=== PATIENT | female | born 1970 | race Caucasian/White ===

== ENCOUNTER 2018-04-06 08:57 | Day surgery (SDC) | payer OTHER ==
[~2018-04-06] VITALS: Ht 167.6 cm; Wt 82.5 kg
[~2018-04-06 08:57] MED LIST: ALBU90OI61 INH; CEPH500 PO; CYCL10 PO; HYDACE5 PO; HYDACE5325 PO; Norco 5-325 Ta1 EACH PO; OMEP20ER PO; OSEL75CA PO; PHENA200 PO; PROM25 PO; RXHYDMOR2 PO; RXPHEN200 PO; SULTRIDS PO; Zofran Odt4 MG SL
[2018-04-06] MEDS ORDERED: ESTRADIOL1 EAC2 TD (09:54)
[2018-04-06] MEDS ORDERED: PROG100 PO (09:55)
== END 2018-04-06 13:15 | disposition home or self-care (01) ==
LOC: ORSCSDS 08:57
PROVIDERS: Orthopaedic Surgery
PROC: 0RBJ4ZZ Excision of Right Shoulder Joint, Percutaneous Endoscopic Approach (ICD-10-PCS; principal; 2018-04-06 10:15)
DX: M75.111 Incomplete rotator cuff tear or rupture of right shoulder, not specified as traumatic (principal); M75.41 Impingement syndrome of right shoulder; M75.21 Bicipital tendinitis, right shoulder; Z87.891 Personal history of nicotine dependence; K21.9 Gastro-esophageal reflux disease without esophagitis; Z79.899 Other long term (current) drug therapy
CPT/HCPCS: J0690; J1100; J1200; J2250; J2405; J2710; J3010; J7120